=== PATIENT | female | born 2005 | race Caucasian/White ===

== ENCOUNTER 2025-01-03 19:35 | Emergency (ER) | payer OTHER ==
[~2025-01-03] VITALS: Ht 160 cm; Wt 77.0 kg
[2025-01-03 19:39] VITALS: BP 116/65; PULSE 92; RESP 16; TEMP 36.7; O2SAT 99
[2025-01-03 20:30] LABS: BASOPHILS % 0.5 % (0.0-2.0); DIFFERENTIAL COMMENT 0; EOSINOPHILS % 3.3 % (0.0-5.0); HEMOGLOBIN. 11.4 g/dL (12.0-16.0); LYMPHOCYTES % 12.4 % (20.0-50.0); MEAN CORPUSCULAR HEMOGLOBIN 26.7 pg (28.0-32.0); MEAN CORPUSCULAR HGB CONC 34.6 g/dL (31.0-37.0); MEAN CORPUSCULAR VOLUME 77.2 fL (81.0-99.0); MEAN PLATELET VOLUME 10.4 fl (7.4-10.4); MONOCYTES % 7.7 % (2.0-8.0); NEUTROPHILS % 76.1 % (40.0-76.0); PLATELET 201 x1000/uL (130-400); RED BLOOD CELL COUNT 4.27 mill/uL (4.2-5.4); RED CELL DISTRIBUTION WIDTH 13.3 % (11.6-14.6); WHITE BLOOD COUNT 8.9 x1000/uL (4.5-11.0)
[2025-01-03 20:40] LABS: CARBON DIOXIDE 27 mEq/L (21-32); CHLORIDE 103 mEq/L (98-107); POTASSIUM 3.4 mEq/L (3.5-5.1); SODIUM 137 mEq/L (136-145)
[2025-01-03 20:41] LABS: CALCIUM 9.2 mg/dL (8.7-10.4)
[2025-01-03 20:46] LABS: CREATININE 0.6 mg/dL (0.6-1.0); GLUCOSE 86 mg/dL (70-105); UREA NITROGEN BLOOD 6 mg/dL (9-23)
== END 2025-01-04 03:23 | disposition left against medical advice (07) ==
LOC: ER 19:35
DX: O99.513 Diseases of the respiratory system complicating pregnancy, third trimester (principal); J06.9 Acute upper respiratory infection, unspecified; Z3A.28 28 weeks gestation of pregnancy
CPT/HCPCS: 36415; 80048; 85025; 99283

== ENCOUNTER 2025-01-06 00:10 | Emergency (ER) | payer OTHER ==
[~2025-01-06] VITALS: Ht 160 cm; Wt 79.0 kg
[2025-01-06 00:18] VITALS: O2SAT 99
[2025-01-06 00:24] VITALS: BP 98/58; TEMP 36.6
[2025-01-06] MEDS ORDERED: DEXAMETHASONE 2MG TABLET PO ONE (00:30)
[2025-01-06] MEDS: IPRATROPIUM/ALBUTEROL 0.5-3(2.5)MG/3ML NEB HHN STA (00:47)
[2025-01-06 00:48] VITALS: PULSE 88; RESP 18; O2SAT 98
[2025-01-06] MEDS: DEXAMETHASONE 4MG TABLET PO NR (01:00)
== END 2025-01-06 02:13 | disposition home or self-care (01) ==
LOC: ER 00:10
DX: O99.513 Diseases of the respiratory system complicating pregnancy, third trimester (principal); J45.901 Unspecified asthma with (acute) exacerbation; Z3A.28 28 weeks gestation of pregnancy
CPT/HCPCS: 94640; 99283; J8540; Z7610 ×2; 94070; 94664; 98960